=== PATIENT | male | born 1980 | race Caucasian/White ===

== ENCOUNTER 2016-05-06 15:37 | Emergency (ER) | payer BC ==
[2016-05-06 16:25] VITALS: BP 155/102
--- NOTE | 2016-05-06 16:37 | UC ---
Eye Complaint HPI - HPI Summary HPI Summary: Redness and crusting in L eye all day today. Woke with symptoms today. Denies contact lens use, pain, FB sensation, light sensitivity, or recent grinding/ welding. 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 - History of Current Complaint Chief Complaint: UCEye Stated Complaint: LFT EYE COMPLAINT Time Seen by Provider: 05/06/16 16:24 Hx Obtained From: Patient Onset/Duration: Gradual Onset, Lasting Hours Timing: Constant Severity Initially: Mild Severity Currently: Mild Location of Injury: Conjunctiva Character: Dull Aggravating Factor(s): Nothing Alleviating Factor(s): Nothing Associated Signs And Symptoms: Positive: Drainage (Clear) - Allergies/Home Medications Allergies/Adverse Reactions: Allergies Allergy/AdvReac Type Severity Reaction Status Date / Time No Known Allergies Allergy Verified 05/06/16 16:14 Home Medications: Home Medications Cholecalciferol [D 1000] 5,000 units PO DAILY 05/06/16 [History Confirmed ] Famotidine TAB* [Pepcid 20 MG TAB*] 40 mg PO BID 05/06/16 [History Confirmed ] LORazepam TAB(*) [Ativan TAB(*)] 0.5 mg PO TID PRN 05/06/16 [History Confirmed 05/06/16] Melatonin 1 mg PO BEDTIME 05/06/16 [History Confirmed 05/06/16] Probiotic Product [Acidophilus Probiotic] 1 tab PO DAILY 05/06/16 [History Confirmed 05/06/16] Triamterene/HCTZ 37.5-25 MG* [Dyazide CAP*] 1 cap PO DAILY 05/06/16 [History Confirmed 05/06/16] Vitamin B Complex CAP* [B Complex CAP*] 1 cap PO BID 05/06/16 [History Confirmed 05/06/16] PMH/Surg Hx/FS Hx/Imm Hx Cardiovascular History Of: Reports: Hypertension - Surgical History Surgical History: Yes Surgery Procedure, Year, and Place: R ankle - Family History Known Family History: Positive: Hypertension - Social History Occupation: Employed Full-time Alcohol Use: Weekly Substance Use Type: None Smoking Status (MU): Never Smoked Tobacco Review of Systems Constitutional: Negative Skin: Negative Eyes: Drainage, Eye Redness ENT: Negative Respiratory: Negative Cardiovascular: Negative Gastrointestinal: Negative Genitourinary: Negative Motor: Negative Neurovascular: Negative Musculoskeletal: Negative Neurological: Negative Psychological: Negative All Other Systems Reviewed And Are Negative: Yes Physical Exam Triage Information Reviewed: Yes Appearance: Well-Appearing, No Pain Distress, Well-Nourished Vital Signs: Initial Vital Signs Temp 98.5 F 05/06/16 16:19 Pulse 79 05/06/16 16:19 Resp 16 05/06/16 16:19 BP 155/102 05/06/16 16:19 Pulse Ox 99 05/06/16 16:19 Vital Signs Reviewed: Yes Eyes: Positive: Conjunctiva Inflamed - L>R ENT Exam: Normal ENT: Positive: Normal ENT inspection, Hearing grossly normal, Pharynx normal, TMs normal Dental Exam: Normal Neck exam: Normal Neck: Positive: Supple, Nontender, No Lymphadenopathy Respiratory Exam: Normal Respiratory: Positive: Chest non-tender, Lungs clear, Normal breath sounds, No respiratory distress, No accessory muscle use Cardiovascular Exam: Normal Cardiovascular: Positive: RRR, No Murmur Musculoskeletal Exam: Normal Neurological Exam: Normal Psychological Exam: Normal Skin Exam: Normal Eye Complaint Course/Dx - Differential Dx/Diagnosis Provider Diagnoses: L eye conjunctivitis Discharge - Discharge Plan Condition: Stable Disposition: HOME Prescriptions: Ciprofloxacin 0.3% OPTH.LUIS A* [Cipro 0.3% Opth*] 2 drop LEFT EYE QID #5 ml Patient Education Materials: Conjunctivitis (ED) Referrals: Matthias Hendrix DO [Primary Care Provider] - Additional Instructions: Call or return if symptoms persist or worsen.
== END 2016-05-06 16:45 | disposition home or self-care (01) ==
LOC: UCCORT 15:37
DX: H10.32 Unspecified acute conjunctivitis, left eye (principal)
CPT/HCPCS: 99212; G0463

== ENCOUNTER 2018-06-23 12:10 | Emergency (ER) | payer BC ==
--- OUTSIDE RECORDS SUMMARY | 2018-06-23 14:29 | XMS REPORT | Continuity of Care Document ---
:1980 External Reference #:[id number] Author Name Matthias Hendrix D.O. Address [address] [place] [id number] Care Team Providers Name Role Phone HCP/LW on file Primary Care Physician Unavailable Payers Date Identification Numbers Payment Provider Subscriber Effective: Policy Number: [id number] [employer] Ind/Ppo/Hmo/Pos Todd Garner 2016 PayID: [id number] [address] [address] [place] [address] Advance Directives Description No Information Available Problems Active Problems Provider Date Symptom of skin and integumentary tissue Matthias Hendrix D.O. Onset: 2014 Benign essential hypertension Matthias Hendrix D.O. Onset: 06/25/2014 Gastroesophageal reflux disease Matthias Hendrix D.O. Onset: 06/25/2014 Liver function tests abnormal Matthias Hendrix D.O. Onset: 07/30/2014 Anxiety state Matthias Hendrix D.O. Onset: 07/30/2014 Verruca plantaris Matthias Hendrix D.O. Onset: 07/30/2014 Essential hypertension Matthias Hendrix D.O. Onset: 05/11/2015 Vitamin D deficiency Matthias Hendrix D.O. 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 Right-handed Abuse No history of abuse Tobacco Use Start: Unknown Former Cigarette Smoker quit 7 years ago; End: Unknown <2 pack/year ETOH Use Currently consumes 1-2 days/wk alcohol Recreational Drug Use Denies Drug Use Tobacco Use Start: Unknown Patient has never smoked Smoking Status Reviewed: 06/21/18 Patient has never smoked Exercise Type/Frequency Exercises regularly Exercise Type/Frequency Exercises sporadically Sun Exposure Uses sunscreen Seat Belt/Car Seat Yes Contraceptive Methods IUD Age 1st [place] 18 Years Old # [facility] [employer] [facility] [facility] 1-5 Allergies, Adverse Reactions, Alerts Description No Known Drug Allergies Medications Active Medications SIG Qnty Indications Ordering Date Provider Vitamin D3 Ultra 1 by mouth every day 90caps [facility], 06/16/2016 Strength Mary Ann Rizzo.O. 5000Unit Capsules Vitamin B Complex 1-2 by mouth once daily 90tabs [facility], 06/16/2016 Matthias D.O. Tablets Amlodipine take 1 tablet by mouth 30tabs I10 [facility], 06/16/2016 Besylate once daily for high Matthias D.O. 5mg blood pressure Tablets Famotidine take 1 tablet by mouth 180tabs K21.9 [facility], 12/18/2015 40mg 2 times per day for Matthias, D.O. Tablets gastroesophageal reflux disease Probiotic 1 by mouth every day 30caps K21.9 [facility], 05/11/2015 Acidophilus Mary Ann Rizzo.O. Capsules Lorazepam 1 as needed for flight 30tabs [facility], 06/24/2014 0.5mg anxiety Matthias D.O. Tablets Triamterene/Hydroc Take One Tablet By 30tabs I10 [facility], 06/24/2014 hlorothiazide Mouth Every Morning For Matthias D.O. High Blood Pressure 37.5-25mg Tablets History Medications Tamiflu [facility] 1 capsule [facility]2017 - 75mg mouth daily for D.O. 04/16/2017 Capsules 10 days for treatment to prevent influenza Ranitidine 150 1 cap by mouth 180tabs K21.9 Matthias Hendrix, 05/11/2015 - Maximum Strength twice a day as D.O. 12/18/2015 needed 150mg Tablets Prilosec 1 by mouth daily- 60caps K21.9 Matthias Hendrix, 06/25/2014 - 20mg twice a day D.O. 05/11/[address] Ranitidine 150 1 cap by mouth 180tabs 530.81 Matthias Hendrix, 06/25/2014 - Maximum Strength twice a day as D.O. 11/06/2014 needed 150mg Tablets Fiber 2 daily Unknown 06/24/2014 - Tablets 05/10/2015 Melatonin as needed Unknown - 3mg 06/18/2017 Capsules Immunizations CPT Code Status Date Vaccine Lot # [id number] Given 12/19/2017 Influenza Virus Vaccine, Quadrivalent, Split, [id number] Preservative Free 74927 Given 12/19/2016 Influenza Virus Vaccine, Quadrivalent, Split, [id number] Preservative Free 50266 Given 12/18/2015 Influenza Virus Vaccine, Quadrivalent, Split, [id number] Preservative Free 05467 Given 11/07/2014 Influenza Virus Vaccine, Quadrivalent, Split, [id number] Preservative Free Vital Signs Date Vital Result Comment 06/21/2018 10:25am BP Systolic 128 mmHg BP Diastolic 82 mmHg Height 73 inches 6'1" Weight 288.00 lb BMI (Body Mass Index) 38.0 kg/m2 12/19/2017 10:54am BP Systolic 130 mmHg BP Diastolic 86 mmHg Height 73 inches 6'1" Weight 280.00 lb BMI (Body Mass Index) 36.9 kg/m2 06/19/2017 9:36am BP Systolic 124 mmHg BP Diastolic 80 mmHg Height 73 inches 6'1" Weight 282.00 lb BMI (Body Mass Index) 37.2 kg/m2 12/19/2016 2:03pm BP Systolic 126 mmHg BP Diastolic 90 mmHg Height 73 inches 6'1" Weight 280.00 lb BMI (Body Mass Index) 36.9 kg/m2 06/16/2016 10:19am BP Systolic 136 mmHg BP Diastolic 84 mmHg Height 74 inches 6'2" with shoes Weight 280.00 lb BMI (Body Mass Index) 35.9 kg/m2 12/18/2015 9:19am BP Systolic 135 mmHg BP Diastolic 86 mmHg BP Systolic Recheck 142 mmHg per pt's automatic BP BP Diastolic Recheck 94 mmHg per pt's automatic BP Heart Rate 77 /min Height 73 inches 6'1" Weight 271.00 lb with shoes BMI (Body Mass Index) 35.8 kg/m2 05/11/2015 3:10pm BP Systolic 130 mmHg BP Diastolic 88 mmHg Heart Rate 75 /min Height 72.75 inches 6'0.75" Weight 264.00 lb BMI (Body Mass Index) 35.1 kg/m2 11/07/2014 4:32pm BP Systolic 140 mmHg BP Diastolic 90 mmHg Weight 262.00 lb shoes on 07/30/2014 4:10pm BP Systolic 140 mmHg just took BP med BP Diastolic 80 mmHg just took BP med Weight 277.00 lb 06/25/2014 4:07pm BP Systolic 22482 mmHg Height 73 inches 6'1" Weight 284.00 lb BMI (Body Mass Index) 37.5 kg/m2 Results Test Date Facility Test Result H/L Range Note Lipid Profile 02/25/2016 [facility]. Cholesterol 151 mg/dL N <200 1, 2 (Trig/Chol/HDL) LABORATORY [phone] Triglycerides 58 mg/dL N <150 3 HDL Cholesterol 52 mg/dL N >40 4 LDL-Cholesterol 87 mg/dL N < 100 5 Laboratory test 02/25/2016 [facility]. Thyroid Stim 1.04 uIU/ mL N 0.30-4.20 finding LABORATORY Hormone [phone] Vitamin B12 253 pg/mL N 193-986 Vitamin D,25-Hydroxy 16.2 ng/mL Low 30.0-100.0 6 Comp Metabolic Panel 02/25/2016 [facility]. Glucose 96 mg/dL N 74-106 LABORATORY [phone] BUN 11 mg/dL N 7-18 Creatinine 0.9 mg/dL N 0.6-1.3 Glom Filtration Rate, Estimate >60 mL/min N >60 If >60 mL/min N >60 7 BUN/Creat 12.2 ratio N Sodium 142 mmol/L N 136-145 Potassium 3.4 mmol/L Low 3.5-5.1 Chloride 108 mmol/L High 98-107 Carbon Dioxide 28 mmol/L N 21-32 Anion Gap 6 mEq/L Low 8-16 Calcium 8.5 mg/dL N 8.5-10.1 Total Protein 7.4 g/dL N 6.4-8.2 Albumin 4.3 g/dL N 3.4-5.0 Globulin 3.1 g/dL N 1.9-4.3 Alb/Glob 1.4 ratio N Bilirubin,Total 1.3 mg/dL High 0.2-1.0 Sgot/Ast 26 U/L N 15-37 SGPT/Alt 40 U/L N 12-78 Alkaline Phosphatase 25 U/L Low 45-117 CBC Auto Diff 02/25/2016 [facility]. White Blood 6.3 K/uL N 3.4-10.5 LABORATORY Count [phone] Red Blood Count 4.76 M/uL N 4.20-5.80 Hemoglobin 14.7 gm/dL N 12.8-17.0 Hematocrit 41.6 % N 38.0-48.0 Mean Cell Volume 87.4 fl N 80.0-96.0 Mean Corpuscular HGB 30.9 pg N 27.0-33.0 Mean Corpuscular HGB Conc 35.3 g/dL N 31.7-36.0 Platelet Count 249 K/uL N 150-400 Red Cell Distri Width SD 39.9 fl N 36-51 Red Cell Distri Width %CV 12.8 % N 11.6-15.8 Mean Platelet Volume 10.7 fL High 6.6-10.6 Neut% 63.7 % N 33.0-73.0 Lymph % 26.6 % N 17.0-56.0 Ralls % 8.1 % N 0.0-10.0 Eo% 1.4 % N 0.0-5.0 Bas% 0.2 % N 0.1-1.0 Neut# 4.03 K/uL N 1.8-7.0 Lymph # 1.68 K/uL Low 1.8-7.0 Ralls # 0.51 K/uL N 0.0-0.8 Eos # 0.09 K/uL N 0.0-0.5 Baso # 0.01 K/uL Low 0.1-0.2 Liver Function 08/04/2014 [facility] Direct Bilirubin 0.30 mg/dL High 0.03-0.18 Panel [phone] Indirect Bilirubin 1.1 mg/dL High 0.3-1.0 Comp Metabolic Panel 08/04/2014 [facility] Sodium 140 mmol/L N 133- 145 [phone] Potassium 3.8 mmol/L N 3.5-5.0 Chloride 105 mmol/L N 101-111 Co2 Carbon Dioxide 29 mmol/L N 22-32 Anion Gap 6 mmol/L N 2-11 Glucose 90 mg/dL N 70-100 Blood Urea Nitrogen 8 mg/dL N 6-24 Creatinine 0.90 mg/dL N 0.67-1.17 BUN/Creatinine Ratio 8.9 N 8-20 Calcium 9.5 mg/dL N 8.6-10.3 Total Protein 6.9 g/dL N 6.4-8.9 Albumin 4.6 g/dL N 3.2-5.2 Globulin 2.3 g/dL N 2-4 Albumin/Globulin Ratio 2.0 N 1-3 Total Bilirubin 1.40 mg/dL High 0.2-1.0 Alkaline Phosphatase 24 U/L Low 34-104 Alt 21 U/L N 7-52 Ast 21 U/L N 13-39 Egfr Non- 97.8 N >60 Egfr 125.8 N >60 8 Hepatitis Acute 07/14/2014 [facility] Hepatitis B Nonreactive N Nonreactive Panel [phone] Surface Antigen Hepatitis B Core IgM Nonreactive N Nonreactive Hepatitis A AB IgM Nonreactive N Nonreactive Hepatitis C Antibody Nonreactive N Nonreactive CBC Auto Diff 07/03/2014 [facility] White Blood Count 6.8 10^3/uL N 4.8-10.8 [phone] Red Blood Count 4.77 10^6/uL N 4.0-5.4 Hemoglobin 14.6 g/dL N 14.0-18.0 Hematocrit 43 % N 42-52 Mean Corpuscular Volume 89 fL N 80-94 Mean Corpuscular Hemoglobin 31 pg N 27-31 Mean Corpuscular HGB Conc 34 g/dL N 31-36 Red Cell Distribution Width 13 % N 10.5-15 Platelet Count 221 10^3/uL N 150-450 Mean Platelet Volume 10 um3 N 7.4-10.4 Abs Neutrophils 4.3 10^3/uL N 1.5-7.7 Abs Lymphocytes 1.8 10^3/uL N 1.0-4.8 Abs Monocytes 0.5 10^3/uL N 0-0.8 Abs Eosinophils 0.1 10^3/uL N 0-0.6 Abs Basophils 0 10^3/uL N 0-0.2 Abs Nucleated RBC 0.01 10^3/uL N Granulocyte % 63.4 % N 38-83 Lymphocyte % 27.0 % N 25-47 Monocyte % 7.3 % N 1-9 Eosinophil % 1.8 % N 0-6 Basophil % 0.5 % N 0-2 Nucleated Red Blood Cells % 0.2 N Comp Metabolic Panel 07/03/2014 [facility] Sodium 137 mmol/L N 133- 145 [phone] Potassium 3.5 mmol/L N 3.5-5.0 Chloride 101 mmol/L N 101-111 Co2 Carbon Dioxide 30 mmol/L N 22-32 Anion Gap 6 mmol/L N 2-11 Glucose 100 mg/dL N 70-100 Blood Urea Nitrogen 11 mg/dL N 6-24 Creatinine 0.96 mg/dL N 0.67-1.17 BUN/Creatinine Ratio 11.5 N 8-20 Calcium 9.3 mg/dL N 8.6-10.3 Total Protein 6.9 g/dL N 6.4-8.9 Albumin 4.5 g/dL N 3.2-5.2 Globulin 2.4 g/dL N 2-4 Albumin/Globulin Ratio 1.9 N 1-3 Total Bilirubin 1.50 mg/dL High 0.2-1.0 Alkaline Phosphatase 26 U/L Low 34-104 Alt 173 U/L High 7-52 Ast 846 U/L High 13-39 Egfr Non- 90.8 N >60 Egfr 116.7 N >60 9 Lipid Profile 07/03/2014 [facility] Triglycerides 108 mg/dL N 10 (Trig/Chol/HDL) [phone] Cholesterol 132 mg/dL N 11 HDL Cholesterol 37.5 mg/dL N 12 LDL Cholesterol 73 mg/dL N 13 HIV 1/2 AB 07/03/2014 [facility] HIV 1 2 Nonreactive N Nonreactive 14 Evaluation [phone] Antibody Laboratory 07/03/2014 [facility] TSH (Thyroid 1.53 IU/mL N 0.34-5.60 test finding [phone] Stimulating Horm) Vitamin D, 25 07/03/2014 [facility] 25-Hydroxy <4.0 ng/mL N Hydroxy [phone] Vitamin D2 25-Hydroxy Vitamin D3 13 ng/mL N 25-Hydroxy Vitamin D Total 13 ng/mL Abnormal 15 1 I10 K21.9 2 Reference Guidelines*: Desirable: ........... < 200 mg/dL Borderline High: ..... 200-239 mg/dL High: ................ >=240 mg/dL * The National Cholesterol Education Program (NCEP) 3 Reference Guidelines*: Normal: ............. < 150 mg/dL Borderline High: .... 150-199 mg/dL High: ............... 200-499 mg/dL Very High: .......... > 500 mg/dL * Source: National Cholesterol Education Program (NCEP) 4 Reference Guidelines*: Low HDL: ..... < 40 mg/dL Normal: ..... 40-60 mg/dL Desirable: ... > 60 mg/dL *The National Cholesterol Education Program(NCEP) 5 Reference Guidelines*: Optimal:........... <100 mg/dL Near Optimal....... 100-129 mg/dL Borderline High.... 130-159 mg/dL High............... 160-189 mg/dL Very High.......... >=190 mg/dL * Source: National Cholesterol Education Program (NCEP) 6 Vitamin D deficiency has been defined by the [place] of [employer] and an Endocrine Society practice guideline as a level of serum 25-OH vitamin D less than 20 ng/mL (1,2). The Endocrine Society went on to further define vitamin D insufficiency as a level between 21 and 29 ng/mL (2). 1. IOM ([place] of [employer]). 2010. Dietary reference intakes for calcium and D. [place]: The National Academies Press. 2. Gonzalez MF, Sj NC, Catherine COTTER, et al. Evaluation, treatment, and prevention of vitamin D deficiency: an Endocrine Society clinical practice guideline. JCEM. 2010; 96(7):1911-30. Performed at: RN - [facility] [address] [id number] Equipment Cleaner: Felicia Bernal MD, Phone: [phone] Note: Persistent reduction for 3 months or more in an eGFR <60 mL/min/1.73 m2 defines CKD. Patients with eGFR values >/=60 mL/min/1.73 m2 may also have CKD if evidence of persistent proteinuria is present. The original MDRD equation for estimated GFR is not valid for patients less than 18 years of age. Additional information may be found at www.kdoqi.org. 8 Because ethnic data is not always readily available, this report includes an eGFR for both -Americans and non- Americans. The National Kidney Disease Education Program (NKDEP) does not endorse the use of the MDRD equation for patients that are not between the ages of 18 and 70, are , have extremes of body size, muscle mass, or nutritional status, or are non- or non-. According to the National Kidney Foundation, irrespective of diagnosis, the stage of the disease is based on the level of kidney function: Stage Description GFR(mL/min/1.73 m(2)) 1 Kidney damage with normal or decreased GFR 90 2 Kidney damage with mild decrease in GFR 60-89 3 Moderate decrease in GFR 30-59 4 Severe decrease in GFR 15-29 5 Kidney failure <15 (or dialysis) 9 Because ethnic data is not always readily available, this report includes an eGFR for both -Americans and non- Americans. The National Kidney Disease Education Program (NKDEP) does not endorse the use of the MDRD equation for patients that are not between the ages of 18 and 70, are , have extremes of body size, muscle mass, or nutritional status, or are non- or non-. According to the National Kidney Foundation, irrespective of diagnosis, the stage of the disease is based on the level of kidney function: Stage Description GFR(mL/min/1.73 m(2)) 1 Kidney damage with normal or decreased GFR 90 2 Kidney damage with mild decrease in GFR 60-89 3 Moderate decrease in GFR 30-59 4 Severe decrease in GFR 15-29 5 Kidney failure <15 (or dialysis) 10 Desirable <150 Borderline high 150-199 High 200-499 Very High >500 11 Desirable <200 Borderline high 200-239 High >239 12 Low <40 Desirable: 40-60 High: >60 13 Desirable: <100 mg/dL Near Optimal: 100-129 mg/dL Borderline High: 130-159 mg/dL High: 160-189 mg/dL Very High: >189 mg/dL 14 It is recognized that currently available assays for the detection of antibodies to HIV-1 and/or HIV-2 may not detect all infected individuals. HIV antibodies may be undetectable in some stages of the infection and in some clinical conditions. The performance of this assay has not been established for populations of infants or children. Assayed by Chemiluminescence Microparticle Immunoassay on the Siemens Advia Centaur CP. Values obtained with different methods or kits cannot be used interchangeably.The diagnostic specificity of the ADVIA Centaur 1/O/2 Enhanced assay in the low risk population was 99.90% (6052/6058) with a 95% confidence interval of 99.78 to 99.96%. 15 Interpretation: 10-19 ng/mL (mild to moderate deficiency) REFERENCE VALUE 25-HYDROXY D TOTAL (D2+D3) Optimum levels in the healthy population are 20-50, patients with bone disease may benefit from higher levels within this range. Test Performed by: [address] [address] Machine Tool Rebuilder: Rodolfo Tong II, M.D., Ph.D. Procedures Date Code Description Status 07/30/2014 11113 Destruction Of Skin Lesions Up To 14 Flat Warts/Molluscum Completed Contag Encounters Type Date Location Provider Dx Diagnosis Office Visit 06/21/2018 Main Office Matthias Hendrix, Z00.00 Encntr for general 10:30a D.O. 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 hypertension K21.9 Gastro-esophageal reflux disease without esophagitis E55.9 Vitamin D deficiency, unspecified Z23 Encounter for immunization Z41.8 Encntr for oth proc for purpose oth than [facility] Z79.899 Other assisted (current) drug therapy Office Visit 06/19/2017 9:15a Main Office Matthias Hendrix, I10 Essential ( primary) D.O. hypertension K21.9 Gastro-esophageal reflux disease without esophagitis E55.9 Vitamin D deficiency, unspecified Z00.00 Encntr for general adult medical exam w/o abnormal findings Z71.89 Other specified counseling Office Visit 12/19/2016 1:30p Main Office Matthias Hendrix, I10 Essential ( primary) D.O. hypertension K21.9 Gastro-esophageal reflux disease without esophagitis Z00.00 Encntr for general adult medical exam w/o abnormal findings E55.9 Vitamin D deficiency, unspecified Z23 Encounter for immunization Z71.89 Other specified counseling Office Visit 06/16/2016 10:00a Main Office Matthias Hendrix, Jadon Essential ( primary) D.O. hypertension K21.9 Gastro-esophageal reflux disease without esophagitis Office Visit 12/18/2015 9:15a Main Office Matthias Hendrix, I10 Essential ( primary) D.O. hypertension K21.9 Gastro-esophageal reflux disease without esophagitis Z00.00 Encntr for general adult medical exam w/o abnormal findings Z23 Encounter for immunization Z41.8 Encntr for oth proc for purpose oth than [facility] Office Visit 05/11/2015 3:00p Main Office Matthias Hendrix, I10 Essential ( primary) D.O. hypertension K21.9 Gastro-esophageal reflux disease without esophagitis Office Visit 11/07/2014 4:00p Main Office Matthias Hendrix, 401.1 Hypertension Benign D.O. 530.81 Esophageal Reflux 078.12 Plantar Wart v07.2 Prophylactic Immunotherapy v04.81 Need For Prophylactic Vaccination & Inoculation/Influenza Office Visit 07/30/2014 4:00p Main Office Matthias Hendrix, 401.1 Hypertension Benign D.O. 530.81 Esophageal Reflux 794.8 Liver Study Abnormal 300.09 Anxiety States Other 078.12 Plantar Wart Office Visit 06/25/2014 3:30p Main Office Matthias Hendrix, V70.0 Examination General D.O. Medical Routine AT [facility] 782.9 Skin & Integumentary Tissue Other Symptoms 401.1 Hypertension Benign 530.81 Esophageal Reflux Plan of Treatment Future Appointment(s):12/20/2018 11:00 am - Matthias Hendrix D.O. at Main [facility]6/21/2018 - Matthias Hendrix D.O.Z00.00 Encounter for general adult medical examination without abnoE55.9 Vitamin D deficiency, [id number] Essential (primary) hypertensionFollow up:6 months HTNK21.9 Gastro-esophageal reflux disease without nlwzxycenpyB15.899 Other long line teamster (current) drug hxzmqprJ86.9 Anxiety disorder, unspecified
[2018-06-23 14:36] VITALS: BP 149/79
--- NOTE | 2018-06-23 15:10 | UC ---
Throat Pain/Nasal Dev HPI - HPI Summary HPI Summary: Pt presents with sudden onset of sore throat, nasal congestion, PND and loss of voice X 3 days. - History of Current Complaint Chief Complaint: UCRespiratory Stated Complaint: LOSS OF VOICE,SORE THROAT Time Seen by Provider: 06/23/18 14:42 Hx Obtained From: Patient Onset/Duration: Sudden Onset, Lasting Days, Still Present Severity: Mild Pain Intensity: 2 Pain Scale Used: 0-10 Numeric Cough: None Associated Signs & Symptoms: Positive: Hoarseness, Other - PND - Epiglottits Risk Factors Epiglottis Risk Factors: Sudden Onset - Allergies/Home Medications Allergies/Adverse Reactions: Allergies Allergy/AdvReac Type Severity Reaction Status Date / Time No Known Allergies Allergy Verified 06/23/18 14:36 Home Medications: Home Medications Amlodipine Besylate [Norvasc] 5 mg PO QAM 06/23/18 [History Confirmed 06/23/18] PMH/Surg Hx/FS Hx/Imm Hx Previously Healthy: Yes - Surgical History Surgical History: Yes Surgery Procedure, Year, and Place: R ankle - Family History Known Family History: Positive: Hypertension - Social History Occupation: Employed Full-time Lives: With Family Alcohol Use: Weekly Alcohol Amount: 10 Substance Use Type: Excessive Caffeine Smoking Status (MU): Former Smoker Have You Smoked in the Last Year: No - Immunization History Vaccination Up to Date: Yes Review of Systems All Other Systems Reviewed And Are Negative: Yes Constitutional: Positive: Negative Skin: Positive: Negative Eyes: Positive: Negative ENT: Positive: Sore Throat, Other - PND Respiratory: Positive: Negative Cardiovascular: Positive: Negative Gastrointestinal: Positive: Negative Genitourinary: Positive: Negative Motor: Positive: Negative Neurovascular: Positive: Negative Musculoskeletal: Positive: Negative Neurological: Positive: Negative Psychological: Positive: Negative Is Patient Immunocompromised?: No Physical Exam Triage Information Reviewed: Yes Appearance: Well-Appearing Vital Signs: Initial Vital Signs Temp 98.2 F 06/23/18 14:31 Pulse 89 06/23/18 14:31 Resp 14 06/23/18 14:31 BP 149/79 06/23/18 14:31 Pulse Ox 100 06/23/18 14:31 Vital Signs Reviewed: Yes Eye Exam: Normal ENT Exam: Normal ENT: Positive: Nasal drainage, Other - PND Dental Exam: Normal Neck exam: Normal Respiratory Exam: Normal Cardiovascular Exam: Normal Musculoskeletal Exam: Normal Neurological Exam: Normal Psychological Exam: Normal Skin Exam: Normal Throat Pain/Nasal Course/Dx - Differential Dx/Diagnosis Differential Diagnosis/HQI/PQRI: Laryngitis, Pharyngitis, URI Provider Diagnosis: Laryngitis Discharge - Sign-Out/Discharge Documenting (check all that apply): Patient Departure All imaging exams completed and their final reports reviewed: No Studies - Discharge Plan Condition: Stable Disposition: HOME Prescriptions: predniSONE TAB* [Deltasone 20 MG TAB*] 20 mg PO DAILY #4 tab Patient Education Materials: Laryngitis (ED) Referrals: Matthias Hendrix DO [Primary Care Provider] - If Needed - Billing Disposition and Condition Condition: STABLE Disposition: Home
== END 2018-06-23 15:06 | disposition home or self-care (01) ==
LOC: UCCORT 12:10
DX: J04.0 Acute laryngitis (principal); R09.81 Nasal congestion; R09.82 Postnasal drip; Z87.891 Personal history of nicotine dependence
CPT/HCPCS: 87651; 99212; G0463